=== PATIENT | female | born 1935 | race American Indian/Alaskan Native ===

== ENCOUNTER 2017-06-15 21:46 | Emergency (ER) | payer MEDICARE ==
[2017-06-15 22:58] VITALS: BP 133/68
== END 2017-06-15 23:55 | disposition left against medical advice (07) ==
LOC: ED 21:46
DX: M25.562 Pain in left knee (principal); Z53.21 Procedure and treatment not carried out due to patient leaving prior to being seen by health care provider

== ENCOUNTER 2017-06-24 10:56 | Outpatient (CLI) | payer MEDICARE ==
--- NOTE | 2017-06-24 13:05 | XRay Report ---
BILATERAL KNEE RADIOGRAPHS INDICATION: Right knee pain. COMPARISON: None similar. FINDINGS: Standing AP and lateral views of both knees demonstrate multiple round, aggregated ossific densities behind the right knee, individually measuring approximately 2 cm with similar, less pronounced findings on the left. Osteopenia/osteoporosis. Tricompartmental osteoarthrosis noted bilaterally, in the order of severity involving the medial, patellofemoral and lateral compartments. No significant right suprapatellar effusion. Left suprapatellar soft tissue swelling/effusion though suspected as also possible soft tissue air. CONCLUSION: 1. Synovial osteochondromatosis, right greater than left, as described. 2. Advanced bilateral knee tricompartmental osteoarthrosis also noted. Thank you for the opportunity to participate in this patient's care.
== END 2017-06-24 10:57 | disposition home or self-care (01) ==
LOC: XRAY 10:56
PROVIDERS: ATTEND Orthopaedic Surgery
DX: D48.0 Neoplasm of uncertain behavior of bone and articular cartilage (principal); M17.0 Bilateral primary osteoarthritis of knee; M81.0 Age-related osteoporosis without current pathological fracture

== ENCOUNTER 2017-07-21 11:51 | Outpatient (CLI) | payer MEDICARE ==
--- NOTE | 2017-07-21 14:12 | XRay Report ---
ROUTINE CHEST, TWO VIEWS: HISTORY: Heart failure. The trachea, heart, mediastinal contour, lung perez and bony thorax are unremarkable. Chronic bilateral rotator cuff tears are suspected with advanced degenerative changes of both shoulders. IMPRESSION: No acute cardiopulmonary process.
== END 2017-07-21 11:52 | disposition home or self-care (01) ==
LOC: XRAY 11:51
PROVIDERS: ATTEND Nurse Practitioner
DX: Z01.810 Encounter for preprocedural cardiovascular examination (principal); I50.9 Heart failure, unspecified; M19.011 Primary osteoarthritis, right shoulder; M19.012 Primary osteoarthritis, left shoulder
CPT/HCPCS: 71020

== ENCOUNTER 2017-09-04 06:15 | Inpatient (IN) | payer MEDICARE ==
[2017-09-03 14:49] LABS: Alanine Aminotransferase 22 units/L (7-56); Albumin 3.3 g/dL (3.9-5); BUN/Creatinine Ratio 24; Blood Urea Nitrogen 12 mg/dL (7-17); Calcium 11.4 mg/dL (8.4-10.2); Hemolysis Index 19
[2017-09-03 14:50] LABS: Hematocrit 30.4 % (30.3-42.9)
[2017-09-03 14:51] LABS: Basophils % (Auto) 0.5 % (0.0-1.8); Eosinophils # (Auto) 0.1 K/mm3 (0.0-0.4); Eosinophils % (Auto) 2.7 % (0.0-4.3); Lymphocytes # (Auto) 2.4 K/mm3 (1.2-5.4); Lymphocytes % (Auto) 45.3 % (13.4-35.0); Mean Corpuscular HGB Conc 33 % (30-34); Mean Corpuscular Hemoglobin 28 pg (28-32); Mean Corpuscular Volume 84 fl (79-97); Monocytes # (Auto) 0.7 K/mm3 (0.0-0.8); Monocytes % (Auto) 13.8 % (0.0-7.3); Platelet Count 174 K/mm3 (140-440); Red Cell Distribution Width 16.4 % (13.2-15.2)
[2017-09-03 14:54] LABS: INR 1.11 (0.87-1.13)
[2017-09-03 14:55] LABS: Partial Thromboplastin Time 31.9 Sec. (24.2-36.6)
[~2017-09-04 06:15] MED LIST: TRANEXAMIC ACID IV ONE
[2017-09-04] MEDS ORDERED: PEPCID PO NR (07:00)
[2017-09-04] MEDS ORDERED: ANCEF/STERILE WATER 2 GM/20 ML IV NR (07:00)
[2017-09-04] MEDS ORDERED: VERSED IV NR (07:00)
[2017-09-04] MEDS ORDERED: MORPHINE IV PRN (07:32)
[2017-09-04] MEDS ORDERED: ZOFRAN IV PRN (07:32)
--- NOTE | 2017-09-04 07:32 | Anesthesia Day of Surgery ---
Anesthesia Day of Surgery - Day of Surgery Patient Examined: Yes Patient H&P Reviewed: Yes Patient is NPO: Yes Beta Blockers: Yes Cardiac Clearance: Yes
--- NOTE | 2017-09-04 07:32 | Anesthesia Consultation ---
Anesthesia Consult and Med Hx Date of service: 09/04/17 - Airway Anesthetic Teeth Evaluation: Dentures, Edentulous ROM Head & Neck: Adequate Mental/Hyoid Distance: Adequate Mallampati Class: Class II Intubation Access Assessment: Probably Good - Pulmonary Exam CTA: Yes - Cardiac Exam Cardiac Exam: RRR - Pre-Operative Health Status ASA Pre-Surgery Classification: ASA3 Proposed Anesthetic Plan: Epidural, Spinal Nerve Block: adductor canal - Pulmonary Hx Smoking: No SOB: Yes Hx Sleep Apnea: (ALVAREZ PRE SCREEN HIGH RISK.) - Cardiovascular System Hx Hypertension: Yes (X 10 YRS, EF 60%) Hx Heart Attack/AMI: No Hx Percutaneous Transluminal Coronary Angioplasty (PTCA): Yes (stent x 1?) Hx Cardia Arrhythmia: Yes (afib, off coumadin x 7 days) - Central Nervous System Hx Seizures: No CVA: No Hx Psychiatric Problems: Yes (anxiety) - Gastrointestinal Hx Gastroesophageal Reflux Disease: Yes - Endocrine Hx Renal Disease: No (h/o stones) Hx Insulin Dependent Diabetes: Yes Hx Hypothyroidism: No - Other Systems Hx Cancer: No Hx Obesity: Yes - Additional Comments Anesthesia Medical History Comments: cardiac clearance on chart
[2017-09-04] MEDS ORDERED: SUBLIMAZE ONE (07:33)
[2017-09-04] MEDS ORDERED: DIPRIVAN 10 MG/ML IV ONE ×4 (07:33→11:23)
[2017-09-04] MEDS ORDERED: XYLOCAINE MPF 2% ONE (07:33)
[2017-09-04] MEDS ORDERED: NACL BACTERIOSTATIC INFILTRATI ONE (07:48)
[2017-09-04] MEDS: NACL 0.9% 1000 ML 1,000 ML IV SCH (07:50)
[2017-09-04] MEDS ORDERED: XYLOCAINE 1% 20 mL ONE (07:54)
[2017-09-04] MEDS ORDERED: DECADRON ONE (07:54)
[2017-09-04] MEDS ORDERED: MARCAINE 0.5% 0 ML INFILTRATI ONE (07:54)
[2017-09-04] MEDS ORDERED: CLONIDINE 1,000 MCG/10 ML VIAL EP ONE (07:55)
[2017-09-04] MEDS ORDERED: ePHEDrine SULFATE ONE ×2 (08:41→09:49)
[2017-09-04] MEDS ORDERED: MARCAINE 0.5% 60 ML INFILTRATI ONE (10:57)
[2017-09-04] MEDS ORDERED: DEPO-MEDROL ONE (10:57)
[2017-09-04] MEDS ORDERED: NACL ONE (10:57)
[2017-09-04] MEDS ORDERED: MORPHINE ONE (10:58)
[2017-09-04] MEDS ORDERED: TORADOL ONE (10:58)
[2017-09-04] MEDS ORDERED: NACL 0.9% 100 ML ONE (11:07)
[2017-09-04] MEDS ORDERED: MORPHINE IM ONE (11:07)
[2017-09-04] MEDS ORDERED: MARCAINE 0.5% INFILTRATI ONE ×2 (11:07→11:15)
[2017-09-04] MEDS ORDERED: TRANEXAMIC ACID ONE (11:07)
[2017-09-04] MEDS ORDERED: DEPO-MEDROL INTRA-ARTI ONE ×2 (11:07→11:15)
[2017-09-04] MEDS ORDERED: TORADOL IV ONE (11:07)
[2017-09-04] MEDS ORDERED: NACL 0.9% IV ONE ×2 (11:07→11:34)
[2017-09-04] MEDS ORDERED: DILAUDID ONE (11:32)
[2017-09-04] MEDS ORDERED: TRANEXAMIC ACID IV ONE (11:43)
[2017-09-04] MEDS ORDERED: SODIUM CHLORIDE FLUSH SYRINGE 10 ML IV PRN (14:26)
--- NOTE | 2017-09-04 14:40 | Procedure Note ---
Date of procedure: 09/04/17 Pre-op diagnosis: severe arthritis left knee Post-op diagnosis: same Procedure: Left total knee replacement Procedure The patient was brought to the OR placed in the OR table in supine position. She was given a spinal anesthesia in the left lower extremity was prepped and draped in the usual sterile manner. A timeout procedure was done to identify the patient and the correct operative site. The leg was exsanguinated followed by insufflation of the pneumatic tourniquet to 300 mmHg. A midline incision was made centered over the patella was taken down distally towards the tibial tubercle, incision was taken down deep to the patellar tendon exposing the extensor muscles and tendon. Using the subvastus approach the knee joint was exposed revealing severe osteoarthritic changes to both distal femur and proximal tibia as well as some marginal osteophytes at the patella with the knee in full flexion the distal canal was entered using a large drill bit followed by placement over guide aidan into the distal femur next a distal femoral cutting G was applied and approximately 9 mm of distal femur was removed. Taken to protect the collateral ligaments The sizing was done for the femoral component and #5 component was selected this was followed by removal of the anterior posterior chamfer cuts next C-arm control component was inserted and was found to be a good fit. Following removal of the trial femoral component ATTENTION was turned to the proximal tibia using the external alignment guide approximately 8-10 mm of proximal tibia was removed again care was taken to protect the posterior cruciate ligament as well as the collaterals also the medial and lateral menisci were removed as well as impinging osteophytes next the wound was copiously irrigated with pulse lavage this was followed by placement of our trial components bed being a #5 femoral component a 9 mm polyethylene insert and a normal size tibial baseplate knee was reduced and taken through a range of motion and was found to be stable again the trial components were removed the knee was again irrigated with pulse lavage The bone cement was mixed followed by placement over all final components bed being again a #5 femoral component and #5 tibial base plate and a 9 mm polyethylene insert. Again the knee was taken to range of motion and was found to be stable. Next the quadriceps and patellar tendon were repaired using #1 Vicryl followed by closure of the subcutaneous with 2-0 Vicryl and finally metallic dominick were used to suture the skin edges. A mixture of morphine Toradol Marcaine is saline were injected into the surrounding soft tissue for postop pain management. Routine postop process were applied the patient tolerated the procedure there were no complications she was sent to postanesthesia recovery in a stable condition Anesthesia: spinal Surgeon: TUCKER FLEMING (mariama peña 1st geriatric assistant) Estimated blood loss: 50-100ml Pathology: none Condition: stable Disposition: PACU
[2017-09-04] MEDS ORDERED: ANCEF/NS 1 GM/50 ML 1 GM/50 ML BAG IV SCH (15:00)
--- NOTE | 2017-09-04 15:22 | Post Anesthesia Evaluation ---
- Post Anesthesia Evaluation Patient Participated: Yes Airway Patent: Yes Stable Respiratory Function: Yes Nausea/Vomiting: No Temp > 96.8F: Yes Pain Manageable: Yes Adequeate Hydration: Yes Anesthesia Complications: No Block Receding Appropriately: Not Applicable Patient on Ventilator: No
--- NOTE | 2017-09-04 15:35 | History and Physical Report ---
History of Present Illness Date of admission: 09/04/17 06:30 Chief complaint: I have high blood pressure History of present illness: 81 YO Female with HTN, [place], CAD S/P Stent placement, Atrial Fib, ALVAREZ, Obesity, GERD, Diabetes, Anxiety admitted to [facility] for elective Left TKR. Consult placed by Dr. Gudino for medical management. Pt seen and evaluated. Pt resting comfortably. No reports of fever, chills, CP, Palpitations, Shortness of breath , NVD, syncope, productive cough, leg swelling, calf pain, hemoptysis, BRBPR. No reported nursing events. Past History Past Medical History: atrial fib, CAD, diabetes, GERD, hypertension Past Surgical History: total knee replacement Social history: Family history: diabetes, hypertension Medications and Allergies Allergies Allergy/AdvReac Type Severity Reaction Status Date / Time No Known Allergies Allergy Verified 09/02/17 14:41 Home Medications Medication Instructions Recorded Confirmed Last Taken Type Atorvastatin [Lipitor Tab] 10 mg PO QHS 01/08/15 09/02/17 09/03/17 History Citalopram [celeXA] 10 mg PO QDAY 01/08/15 09/02/17 09/03/17 History Famotidine [Pepcid] 40 mg PO BID 01/08/15 09/02/17 09/03/17 History Furosemide [Lasix] 40 mg PO DAILY #30 tablet 01/08/15 09/02/17 09/03/17 Rx Meclizine HCl [Antivert] 12.5 mg PO DAILY PRN 01/08/15 09/02/17 09/03/17 History Metoprolol [Lopressor TAB] 50 mg PO BID 01/08/15 09/02/17 09/04/17 05:00 History Minoxidil [Loniten] 10 mg PO BID 01/08/15 09/02/17 01/08/15 History Warfarin Sodium [Coumadin] 7.5 mg PO 4XW 01/08/15 09/04/17 7 Days Ago History ~08/28/17 Warfarin [Coumadin] 5 mg PO 3XW 01/08/15 09/03/17 01/07/15 History Diltiazem HCl [Diltiazem ER] 180 mg PO BID 09/02/17 09/03/17 09/04/17 05:00 History Omeprazole 20 mg PO DAILY 09/02/17 09/03/17 09/03/17 History Potassium Chloride [Klor-Con] 20 meq PO DAILY 09/02/17 09/02/17 09/03/17 History Torsemide [Demadex] 20 mg PO DAILY 09/02/17 09/02/17 09/03/17 History metFORMIN [Glucophage] 500 mg PO BID 09/02/17 09/03/17 09/03/17 History Cholecalciferol (Vitamin D3) 2,000 unit PO DAILY 09/03/17 09/03/17 09/03/17 History [Vitamin D3] Gabapentin [Neurontin] 100 mg PO DAILY 09/03/17 09/03/17 09/03/17 History Insulin Glargine,Hum.rec.anlog 16 units SQ DAILY 09/03/17 09/03/17 Unknown History [Camila Ledesma] Tylenol /Codeine # 3 tab 1 tab PO PRN PRN 09/03/17 09/03/17 09/03/17 History Active Meds: Active Medications Cefazolin Sodium (Ancef/Sterile Water 2 Gm/20 Ml) 2 gm IV PREOP NR Stop: 09/04/17 23:59 Celecoxib (Celebrex) 200 mg PO BID DEANN Enoxaparin Sodium (Lovenox) 40 mg SUB-Q QDAY DEANN Famotidine (Pepcid) 20 mg PO PREOP NR Stop: 09/04/17 23:45 Last Admin: 09/04/17 07:20 Dose: 20 mg Sodium Chloride (Nacl 0.9% 1000 Ml) 1,000 mls @ 100 mls/hr IV DIRECT [facility] Last Admin: 09/04/17 07:50 Dose: 100 mls/hr Cefazolin Sodium 1 gm/ Sodium (Chloride) 20 mls @ 20 mls/10 min IV Q8H [facility] Stop: 09/05/17 00:09 Midazolam HCl (Versed) 2 mg IV PREOP NR Stop: 09/04/17 23:59 Last Admin: 09/04/17 08:20 Dose: 1 mg Morphine Sulfate (Morphine) 2 mg IV Q10MIN PRN PRN Reason: Pain, Moderate (4-6) Sodium Chloride (Sodium Chloride Flush Syringe 10 Ml) 10 ml IV PRN PRN PRN Reason: LINE FLUSH Review of Systems Constitutional: no weight loss, no weight gain, no fever, no chills Ears, nose, mouth and throat: no ear pain, no ear discharge, no tinnitis, no decreased hearing, no nose pain Breasts: no change in shape, no swelling, no mass Cardiovascular: no chest pain, no orthopnea, no palpitations, no lightheadedness Respiratory: no cough, no cough with sputum, no excessive sputum, no hemoptysis , no shortness of breath Gastrointestinal: no nausea, no vomiting, no diarrhea, no constipation Genitourinary Female: no pelvic pain, no flank pain, no menorrhagia, no dysuria , no urinary frequency Rectal: no pain, no incontinence, no bleeding, no itching Musculoskeletal: no neck stiffness, no neck pain, no shooting arm pain, no arm numbness/tingling, no low back pain Integumentary: no rash, no pruritis, no redness, no sores, no wounds Neurological: no paralysis, no weakness, no parathesias, no numbness Psychiatric: no anxiety, no memory loss, no change in sleep habits, no sleep disturbances, no insomnia Endocrine: no cold intolerance, no heat intolerance, no polyphagia, no excessive thirst, no polydipsia, no polyuria Hematologic/Lymphatic: no easy bruising, no easy bleeding Allergic/Immunologic: no urticaria, no allergic rhinitis, no wheezing Exam - Constitutional Vitals: Temp Pulse Resp BP Pulse Ox 97.6 F 69 14 104/50 100 09/04/17 13:55 09/04/17 14:10 09/04/17 14:10 09/04/17 14:10 09/04/17 14:10 General appearance: Present: mild distress, obese - EENT Eyes: Present: PERRL ENT: hearing intact, clear oral mucosa - Neck Neck: Present: supple, normal ROM - Respiratory Respiratory effort: normal Respiratory: bilateral: CTA - Cardiovascular Heart Sounds: Present: S1 & S2. Absent: rub, click - Extremities Extremities: pulses symmetrical, No edema Peripheral Pulses: within normal limits - Abdominal General gastrointestinal: Present: soft, non-tender, non-distended, normal bowel sounds Female genitourinary: Present: normal - Integumentary Integumentary: Present: clear, warm, dry - Musculoskeletal Musculoskeletal: gait normal, strength equal bilaterally - Psychiatric Psychiatric: appropriate mood/affect, intact judgment & insight - Neurologic Neurologic: CNII-XII intact, moves all extremities Results - Labs CBC & Chem 7: 09/04/17 16:11 09/04/17 16:11 Labs: Abnormal lab results 09/04/17 Range/Units 12:15 POC Glucose 149 H (70-105) Assessment and Plan - Patient Problems (1) HTN (hypertension) Current Visit: Yes Status: Acute Qualifiers: Hypertension type: essential hypertension Qualified Code(s): I10 - Essential (primary) hypertension Plan to address problem: Monitor bp q shift, IV hydralazine prn (2) Diabetes Current Visit: Yes Status: Acute Plan to address problem: ADA diet, insulin, accu check (3) CAD (coronary artery disease) Current Visit: Yes Status: Acute Qualifiers: Coronary Disease-Associated Artery/Lesion type: [place] artery [place] vs. transplanted heart: [place] heart Associated angina: without angina Qualified Code(s): I25.10 - Atherosclerotic heart disease of [place] coronary artery without angina pectoris Plan to address problem: Stable, No angina at this time. Resume anticoagulation, and anti platelet therapy as soon as possible.
[2017-09-04] MEDS ORDERED: D50W (25GM) Syringe IV PRN (16:21)
[2017-09-04 16:52] LABS: Hematocrit 28.4 % (30.3-42.9); Hemoglobin 9.1 gm/dl (10.1-14.3)
[2017-09-04 16:59] LABS: BUN/Creatinine Ratio 26; Blood Urea Nitrogen 13 mg/dL (7-17); Calcium 10.1 mg/dL (8.4-10.2); Hemolysis Index 4
[2017-09-05] MEDS: ceFAZolin 1 GM in NACL 0.9% 20 ML IV SCH ×2 (00:36→06:47)
[2017-09-05] MEDS: NOVOLOG SUB-Q SCH ×5 (00:36→18:36)
[2017-09-05] MEDS: MORPHINE IV PRN ×3 (02:14→22:17)
[2017-09-05] MEDS: NACL 0.9% 1000 ML 1,000 ML IV SCH (02:16)
[2017-09-05] MEDS: LOVENOX SUB-Q SCH (11:27)
[2017-09-05] MEDS ORDERED: APRESOLINE IV PRN (13:43)
[2017-09-05] MEDS ORDERED: ANTIVERT PO PRN (14:49)
--- NOTE | 2017-09-05 14:49 | Progress Note ---
<YVROSE NINA - Last Filed: 09/05/17 15:14> Assessment and Plan Assessment and plan: Patient is a 81 years old female with HTN, [place], CAD S/P Stent placement, Atrial Fib, ALVAREZ, Obesity, GERD, Diabetes, Anxiety admitted to [facility] for elective Left TKR. Consult placed by Dr. Gudino for medical management. Hypertensive urgency Continue home antihypertensive medications Closely monitor blood pressure Coronary artery disease Continue statins Diabetes mellitus Resume metformin and long acting at HS Accu-Chek before meals and at bedtime Sliding scale insulin/NovoLog ADA carbohydrate consistent diet Chronic anemia H&H stable for patient at this point; no blood transfusions needed Closely monitor H&H Hypenatrmia mild Most likely due to poor oral intake Closely monitor electrolytes Hx Atrial fibrillation Resume Coumadin Closely monitor INR DVT prophylaxis Heparin History Interval history: Patient denies chest pain, shortness of breath. Labs and nursing notes reviewed. Hospitalist Physical - Physical exam Narrative exam: Patient alert oriented to person and place, disoriented to time and situation. - Constitutional Vitals: Temp Pulse Resp BP Pulse Ox 98.4 F 81 20 140/80 97 09/05/17 12:00 09/05/17 12:00 09/05/17 12:00 09/05/17 12:00 09/05/17 12:00 General appearance: Present: mild distress, obese, other - EENT Eyes: Present: PERRL ENT: hearing intact - Neck Neck: Present: supple - Respiratory Respiratory effort: normal Respiratory: bilateral: CTA - Cardiovascular Rhythm: regular Heart Sounds: Present: S1 & S2 - Extremities Extremity abnormal: edema (bilateral lower extremity) - Abdominal General gastrointestinal: soft, non-tender - Integumentary Integumentary: Present: clear, warm, dry - Psychiatric Psychiatric: other (impaired judgment) - Neurologic Neurologic: moves all extremities - Allied Health Allied health notes reviewed: nursing Results - Labs CBC & Chem 7: 09/04/17 16:11 09/04/17 16:11 Labs: Laboratory Last Values WBC 5.3 K/mm3 (4.5-11.0) 09/03/17 14:20 RBC 3.60 M/mm3 (3.65-5.03) L 09/03/17 14:20 Hgb 9.1 gm/dl (10.1-14.3) L 09/04/17 16:11 Hct 28.4 % (30.3-42.9) L 09/04/17 16:11 MCV 84 fl (79-97) 09/03/17 14:20 MCH 28 pg (28-32) 09/03/17 14:20 MCHC 33 % (30-34) 09/03/17 14:20 RDW 16.4 % (13.2-15.2) H 09/03/17 14:20 Plt Count 174 K/mm3 (140-440) 09/03/17 14:20 Lymph % (Auto) 45.3 % (13.4-35.0) H 09/03/17 14:20 [place] % (Auto) 13.8 % (0.0-7.3) H 09/03/17 14:20 Eos % (Auto) 2.7 % (0.0-4.3) 09/03/17 14:20 Baso % (Auto) 0.5 % (0.0-1.8) 09/03/17 14:20 Lymph # 2.4 K/mm3 (1.2-5.4) 09/03/17 14:20 [place] # 0.7 K/mm3 (0.0-0.8) 09/03/17 14:20 Eos # 0.1 K/mm3 (0.0-0.4) 09/03/17 14:20 Baso # 0.0 K/mm3 (0.0-0.1) 09/03/17 14:20 Seg Neutrophils % 37.7 % (40.0-70.0) L 09/03/17 14:20 Seg Neutrophils # 2.0 K/mm3 (1.8-7.7) 09/03/17 14:20 PT 14.9 Sec. (12.2-14.9) 09/03/17 14:20 INR 1.11 (0.87-1.13) 09/03/17 14:20 APTT 31.9 Sec. (24.2-36.6) 09/03/17 14:20 Sodium 146 mmol/L (137-145) H 09/04/17 16:11 Potassium 4.0 mmol/L (3.6-5.0) 09/04/17 16:11 Chloride 112.5 mmol/L (98-107) H 09/04/17 16:11 Carbon Dioxide 21 mmol/L (22-30) L 09/04/17 16:11 Anion Gap 17 mmol/L 09/04/17 16:11 BUN 13 mg/dL (7-17) 09/04/17 16:11 Creatinine 0.5 mg/dL (0.7-1.2) L 09/04/17 16:11 Estimated GFR > 60 ml/min 09/04/17 16:11 BUN/Creatinine Ratio 26 % 09/04/17 16:11 Glucose 158 mg/dL (65-100) H 09/04/17 16:11 POC Glucose 206 (70-105) H 09/05/17 12:11 Calcium 10.1 mg/dL (8.4-10.2) 09/04/17 16:11 Total Bilirubin 0.40 mg/dL (0.1-1.2) 09/03/17 14:20 AST 43 units/L (5-40) H 09/03/17 14:20 ALT 22 units/L (7-56) 09/03/17 14:20 Alkaline Phosphatase 122 units/L (35-129) 09/03/17 14:20 Total Protein 7.3 g/dL (6.3-8.2) 09/03/17 14:20 Albumin 3.3 g/dL (3.9-5) L 09/03/17 14:20 Albumin/Globulin Ratio 0.8 % 09/03/17 14:20 <BRIANA GRIGGS R - Last Filed: 09/05/17 16:22> Assessment and Plan Assessment and plan: I saw and evaluated the patient. I agree with the findings and the plan of care as documented in the Nurse Practitioner's~note, with the following corrections and additions. Hospitalist Physical - Constitutional Vitals: Temp Pulse Resp BP Pulse Ox 98.4 F 81 20 140/80 97 09/05/17 12:00 09/05/17 12:00 09/05/17 12:00 09/05/17 12:00 09/05/17 12:00 Results - Labs CBC & Chem 7: 09/04/17 16:11 09/04/17 16:11 Labs: Laboratory Last Values WBC 5.3 K/mm3 (4.5-11.0) 09/03/17 14:20 RBC 3.60 M/mm3 (3.65-5.03) L 09/03/17 14:20 Hgb 9.1 gm/dl (10.1-14.3) L 09/04/17 16:11 Hct 28.4 % (30.3-42.9) L 09/04/17 16:11 MCV 84 fl (79-97) 09/03/17 14:20 MCH 28 pg (28-32) 09/03/17 14:20 MCHC 33 % (30-34) 09/03/17 14:20 RDW 16.4 % (13.2-15.2) H 09/03/17 14:20 Plt Count 174 K/mm3 (140-440) 09/03/17 14:20 Lymph % (Auto) 45.3 % (13.4-35.0) H 09/03/17 14:20 [place] % (Auto) 13.8 % (0.0-7.3) H 09/03/17 14:20 Eos % (Auto) 2.7 % (0.0-4.3) 09/03/17 14:20 Baso % (Auto) 0.5 % (0.0-1.8) 09/03/17 14:20 Lymph # 2.4 K/mm3 (1.2-5.4) 09/03/17 14:20 [place] # 0.7 K/mm3 (0.0-0.8) 09/03/17 14:20 Eos # 0.1 K/mm3 (0.0-0.4) 09/03/17 14:20 Baso # 0.0 K/mm3 (0.0-0.1) 09/03/17 14:20 Seg Neutrophils % 37.7 % (40.0-70.0) L 09/03/17 14:20 Seg Neutrophils # 2.0 K/mm3 (1.8-7.7) 09/03/17 14:20 PT 14.9 Sec. (12.2-14.9) 09/03/17 14:20 INR 1.11 (0.87-1.13) 09/03/17 14:20 APTT 31.9 Sec. (24.2-36.6) 09/03/17 14:20 Sodium 146 mmol/L (137-145) H 09/04/17 16:11 Potassium 4.0 mmol/L (3.6-5.0) 09/04/17 16:11 Chloride 112.5 mmol/L (98-107) H 09/04/17 16:11 Carbon Dioxide 21 mmol/L (22-30) L 09/04/17 16:11 Anion Gap 17 mmol/L 09/04/17 16:11 BUN 13 mg/dL (7-17) 09/04/17 16:11 Creatinine 0.5 mg/dL (0.7-1.2) L 09/04/17 16:11 Estimated GFR > 60 ml/min 09/04/17 16:11 BUN/Creatinine Ratio 26 % 09/04/17 16:11 Glucose 158 mg/dL (65-100) H 09/04/17 16:11 POC Glucose 206 (70-105) H 09/05/17 12:11 Calcium 10.1 mg/dL (8.4-10.2) 09/04/17 16:11 Total Bilirubin 0.40 mg/dL (0.1-1.2) 09/03/17 14:20 AST 43 units/L (5-40) H 09/03/17 14:20 ALT 22 units/L (7-56) 09/03/17 14:20 Alkaline Phosphatase 122 units/L (35-129) 09/03/17 14:20 Total Protein 7.3 g/dL (6.3-8.2) 09/03/17 14:20 Albumin 3.3 g/dL (3.9-5) L 09/03/17 14:20 Albumin/Globulin Ratio 0.8 % 09/03/17 14:20
--- NOTE | 2017-09-05 16:44 | Progress Note ---
Assessment and Plan s/p left total knee replacement, doing well continue Pt and observation, rehab placement on friday Subjective Date of service: 09/05/17 Interval history: no c/o's noted, got up today with PT and walked w/n room...daughter present in room.... Objective Vital signs: Vital Signs - 12hr 09/05/17 09/05/17 09/05/17 05:02 08:00 08:06 Temperature 98.3 F 98.3 F Pulse Rate 79 82 Respiratory 20 20 Rate Blood Pressure 143/86 Blood Pressure 154/79 [Left] O2 Sat by Pulse 96 98 100 Oximetry 09/05/17 09/05/17 12:00 16:00 Temperature 98.4 F 97.6 F Pulse Rate 81 88 Respiratory 20 20 Rate Blood Pressure Blood Pressure 140/80 110/70 [Left] O2 Sat by Pulse 97 98 Oximetry Narrative Exam: left knee - post op dressing intact, negative Hasmukh's sign, moderate swelling, good capillary refill... - Labs CBC & BMP: 09/04/17 16:11 09/04/17 16:11 Labs: Abnormal lab results 09/04/17 09/04/17 09/04/17 Range/Units 16:11 16:11 17:38 Hgb 9.1 L (10.1-14.3) gm/dl Hct 28.4 L (30.3-42.9) % Sodium 146 H (137-145) mmol/L Chloride 112.5 H (98-107) mmol/L Carbon Dioxide 21 L (22-30) mmol/L Creatinine 0.5 L (0.7-1.2) mg/dL Glucose 158 H (65-100) mg/dL POC Glucose 164 H (70-105) 09/04/17 09/05/17 09/05/17 Range/Units 22:16 07:53 12:11 Hgb (10.1-14.3) gm/dl Hct (30.3-42.9) % Sodium (137-145) mmol/L Chloride (98-107) mmol/L Carbon Dioxide (22-30) mmol/L Creatinine (0.7-1.2) mg/dL Glucose (65-100) mg/dL POC Glucose 271 H 182 H 206 H (70-105)
[2017-09-05] MEDS ORDERED: COUMADIN PO SCH (17:00)
[2017-09-05 17:18] LABS: INR 1.18 (0.87-1.13)
[2017-09-05] MEDS: GLUCOPHAGE PO SCH (21:55)
[2017-09-05] MEDS: PEPCID PO SCH (21:55)
[2017-09-05] MEDS: CARDIZEM PO SCH (21:56)
[2017-09-05] MEDS: LOPRESSOR PO SCH (21:57)
[2017-09-05] MEDS: LEVEMIR SUB-Q SCH (22:00)
[2017-09-05] MEDS ORDERED: NON-FORMULARY (Famotidine [Pepcid] 40 MG) PO SCH (22:00)
[2017-09-05] MEDS ORDERED: LONITEN PO SCH (22:00)
[2017-09-05] MEDS ORDERED: DILTIAZEM HCL 180 MG PO SCH (22:00)
[2017-09-06 03:48] LABS: Hematocrit 25.1 % (30.3-42.9); Hemoglobin 8.2 gm/dl (10.1-14.3); Mean Corpuscular HGB Conc 33 % (30-34); Mean Corpuscular Hemoglobin 28 pg (28-32); Mean Corpuscular Volume 86 fl (79-97); Platelet Count 140 K/mm3 (140-440); Red Blood Count 2.91 M/mm3 (3.65-5.03); Red Cell Distribution Width 16.8 % (13.2-15.2)
[2017-09-06 04:04] LABS: BUN/Creatinine Ratio 30; Blood Urea Nitrogen 15 mg/dL (7-17); Hemolysis Index 2
[2017-09-06] MEDS: NOVOLOG SUB-Q SCH ×5 (05:06→22:00)
[2017-09-06] MEDS: DEMADEX PO SCH (05:11)
[2017-09-06 06:59] LABS: Band Neutrophils # (Manual) 0.9 K/mm3; Basophils % (Manual) 0 % (0.0-1.8); Eosinophils % (Manual) 0 % (0.0-4.3); Total Cells Counted 100
[2017-09-06 07:00] LABS: Anisocytosis 1+; Hypochromasia 1+
[2017-09-06] MEDS ORDERED: NON-FORMULARY (Omeprazole [Omeprazole] 20 MG) PO SCH (10:00)
[2017-09-06] MEDS ORDERED: INSULIN GLARGINE HUM REC ANLOG 16 UNIT SQ SCH (10:00)
[2017-09-06] MEDS ORDERED: NON-FORMULARY (Torsemide [Demadex] 20 MG) PO SCH (10:00)
[2017-09-06] MEDS ORDERED: NON-FORMULARY (Cholecalciferol (Vitamin D3) [Vitamin D3] 2,000 UNIT) PO SCH (10:00)
[2017-09-06] MEDS: MORPHINE IV PRN ×4 (10:23→22:42)
[2017-09-06 10:27] LABS: INR 1.18 (0.87-1.13)
[2017-09-06] MEDS: VITAMIN D3 PO SCH (12:12)
[2017-09-06] MEDS: GLUCOPHAGE PO SCH ×2 (12:13→22:41)
[2017-09-06] MEDS: NEURONTIN PO SCH (12:14)
[2017-09-06] MEDS: PEPCID PO SCH ×2 (12:17→22:42)
[2017-09-06] MEDS: celeXA PO SCH (12:17)
[2017-09-06] MEDS: LASIX PO SCH (12:17)
[2017-09-06] MEDS: LOVENOX SUB-Q SCH (12:18)
[2017-09-06] MEDS: CARDIZEM PO SCH ×2 (12:19→22:40)
[2017-09-06] MEDS: POTASSIUM CHLORIDE PO SCH (12:20)
[2017-09-06] MEDS: LOPRESSOR PO SCH ×2 (12:23→22:00)
--- NOTE | 2017-09-06 13:18 | Progress Note ---
Assessment and Plan Assessment and plan: Patient is a 81 years old female with HTN, [place], CAD S/P Stent placement, Atrial Fib, ALVAREZ, Obesity, GERD, Diabetes, Anxiety admitted to [facility] for elective Left TKR. Consult placed by Dr. Gudino for medical management. Hypertensive urgency Continue home antihypertensive medications Closely monitor blood pressure Coronary artery disease Continue statins Diabetes mellitus Resume metformin and long acting at HS Accu-Chek before meals and at bedtime Sliding scale insulin/NovoLog ADA carbohydrate consistent diet Chronic anemia H&H stable for patient at this point; no blood transfusions needed Closely monitor H&H Hypenatrmia mild Most likely due to poor oral intake Closely monitor electrolytes Hx Atrial fibrillation Resume Coumadin Closely monitor INR DVT prophylaxis Heparin History Interval history: Patient was seen and examined. Follow-up on current diagnosis. Overnight uneventful. Patient denies any chest pain, shortness breath, nausea/vomiting or severe headaches. Imaging, nursing note, chart, labs and old chart reviewed. Discussed with patient. Hospitalist Physical - Physical exam Narrative exam: GEN: WDWN, NAD, AWAKE, ALERT, ORIENTATED x2 HEENT: NCAT, EOMI, PERRL, OP Clear NECK: supple, no adenopathy, no thyromegaly, no JVD CVS/HEART: RRR, NORMAL S1S2, NO JVD, pulses present bilaterally CHEST/LUNGS: CTA B, Symmetrical chest expansion, good air entry bilaterally GI/Abdomen: soft, NTND, good bowel sounds, no guarding or rebound /Bladder: no suprapubic tenderness, no CVA or paraspinal tenderness EXT/Skin: no c/c/e, no obvious rash MSK: LROM left knee Neuro: CN 2-12 grossly intact, no new focal deficits Psych: calm her nerves - Constitutional Vitals: Temp Pulse Resp BP Pulse Ox 97.5 F L 88 20 139/75 100 09/06/17 12:16 09/06/17 12:23 09/06/17 12:16 09/06/17 12:23 09/06/17 12:16 General appearance: Present: obese Results - Labs CBC & Chem 7: 09/06/17 03:11 09/06/17 03:11 Labs: Laboratory Last Values WBC 10.0 K/mm3 (4.5-11.0) 09/06/17 03:11 RBC 2.91 M/mm3 (3.65-5.03) L 09/06/17 03:11 Hgb 8.2 gm/dl (10.1-14.3) L 09/06/17 03:11 Hct 25.1 % (30.3-42.9) L 09/06/17 03:11 MCV 86 fl (79-97) 09/06/17 03:11 MCH 28 pg (28-32) 09/06/17 03:11 MCHC 33 % (30-34) 09/06/17 03:11 RDW 16.8 % (13.2-15.2) H 09/06/17 03:11 Plt Count 140 K/mm3 (140-440) 09/06/17 03:11 Lymph % (Auto) 45.3 % (13.4-35.0) H 09/03/17 14:20 [place] % (Auto) Teacher Adult Education 09/06/17 03:11 Eos % (Auto) 2.7 % (0.0-4.3) 09/03/17 14:20 Baso % (Auto) 0.5 % (0.0-1.8) 09/03/17 14:20 Lymph # 2.4 K/mm3 (1.2-5.4) 09/03/17 14:20 [place] # 0.7 K/mm3 (0.0-0.8) 09/03/17 14:20 Eos # 0.1 K/mm3 (0.0-0.4) 09/03/17 14:20 Baso # 0.0 K/mm3 (0.0-0.1) 09/03/17 14:20 Add Manual Diff Complete 09/06/17 03:11 Total Counted 100 09/06/17 03:11 Seg Neutrophils % 37.7 % (40.0-70.0) L 09/03/17 14:20 Seg Neuts % (Manual) 63.0 % (40.0-70.0) 09/06/17 03:11 Band Neutrophils % 9.0 % 09/06/17 03:11 Lymphocytes % (Manual) 14.0 % (13.4-35.0) 09/06/17 03:11 Reactive Lymphs % (Man) 0 % 09/06/17 03:11 Monocytes % (Manual) 14.0 % (0.0-7.3) H 09/06/17 03:11 Eosinophils % (Manual) 0 % (0.0-4.3) 09/06/17 03:11 Basophils % (Manual) 0 % (0.0-1.8) 09/06/17 03:11 Metamyelocytes % 0 % 09/06/17 03:11 Myelocytes % 0 % 09/06/17 03:11 Promyelocytes % 0 % 09/06/17 03:11 Blast Cells % 0 % 09/06/17 03:11 Nucleated RBC % Not Reportable 09/06/17 03:11 Seg Neutrophils # 2.0 K/mm3 (1.8-7.7) 09/03/17 14:20 Seg Neutrophils # Man 6.3 K/mm3 (1.8-7.7) 09/06/17 03:11 Band Neutrophils # 0.9 K/mm3 09/06/17 03:11 Lymphocytes # (Manual) 1.4 K/mm3 (1.2-5.4) 09/06/17 03:11 Abs React Lymphs (Man) 0.0 K/mm3 09/06/17 03:11 Monocytes # (Manual) 1.4 K/mm3 (0.0-0.8) H 09/06/17 03:11 Eosinophils # (Manual) 0.0 K/mm3 (0.0-0.4) 09/06/17 03:11 Basophils # (Manual) 0.0 K/mm3 (0.0-0.1) 09/06/17 03:11 Metamyelocytes # 0.0 K/mm3 09/06/17 03:11 Myelocytes # 0.0 K/mm3 09/06/17 03:11 Promyelocytes # 0.0 K/mm3 09/06/17 03:11 Blast Cells # 0.0 K/mm3 09/06/17 03:11 WBC Morphology Not Reportable 09/06/17 03:11 Hypersegmented Neuts Not Reportable 09/06/17 03:11 Hyposegmented Neuts Not Reportable 09/06/17 03:11 Hypogranular Neuts Not Reportable 09/06/17 03:11 Smudge Cells Not Reportable 09/06/17 03:11 Toxic Granulation Not Reportable 09/06/17 03:11 Toxic Vacuolation Not Reportable 09/06/17 03:11 Dohle Bodies Not Reportable 09/06/17 03:11 Pelger-Huet Anomaly Not Reportable 09/06/17 03:11 Ulisses Rods Not Reportable 09/06/17 03:11 Platelet Estimate Appears normal 09/06/17 03:11 Clumped Platelets Not Reportable 09/06/17 03:11 Plt Clumps, EDTA Not Reportable 09/06/17 03:11 Large Platelets Not Reportable 09/06/17 03:11 Giant Platelets Not Reportable 09/06/17 03:11 Platelet Satelliting Not Reportable 09/06/17 03:11 Plt Morphology Comment Not Reportable 09/06/17 03:11 RBC Morphology Not Reportable 09/06/17 03:11 Dimorphic RBCs Not Reportable 09/06/17 03:11 Polychromasia Not Reportable 09/06/17 03:11 Hypochromasia 1+ 09/06/17 03:11 Poikilocytosis Not Reportable 09/06/17 03:11 Anisocytosis 1+ 09/06/17 03:11 Microcytosis Not Reportable 09/06/17 03:11 Macrocytosis Not Reportable 09/06/17 03:11 Spherocytes Not Reportable 09/06/17 03:11 Pappenheimer Bodies Not Reportable 09/06/17 03:11 Sickle Cells Not Reportable 09/06/17 03:11 Target Cells Not Reportable 09/06/17 03:11 Tear Drop Cells Not Reportable 09/06/17 03:11 Ovalocytes Not Reportable 09/06/17 03:11 Helmet Cells Not Reportable 09/06/17 03:11 Kraft-[place] Bodies Not Reportable 09/06/17 03:11 [place] Rings Not Reportable 09/06/17 03:11 Dia Cells Not Reportable 09/06/17 03:11 Bite Cells Not Reportable 09/06/17 03:11 Crenated Cell Not Reportable 09/06/17 03:11 Elliptocytes Not Reportable 09/06/17 03:11 Acanthocytes (Spur) Not Reportable 09/06/17 03:11 Rouleaux Not Reportable 09/06/17 03:11 Hemoglobin C Crystals Not Reportable 09/06/17 03:11 Schistocytes Not Reportable 09/06/17 03:11 Malaria parasites Not Reportable 09/06/17 03:11 Miki Bodies Not Reportable 09/06/17 03:11 Hem Pathologist Commnt No 09/06/17 03:11 PT 15.6 Sec. (12.2-14.9) H 09/06/17 09:45 INR 1.18 (0.87-1.13) H 09/06/17 09:45 APTT 31.9 Sec. (24.2-36.6) 09/03/17 14:20 Sodium 145 mmol/L (137-145) 09/06/17 03:11 Potassium 4.6 mmol/L (3.6-5.0) 09/06/17 03:11 Chloride 111.4 mmol/L (98-107) H 09/06/17 03:11 Carbon Dioxide 21 mmol/L (22-30) L 09/06/17 03:11 Anion Gap 17 mmol/L 09/06/17 03:11 BUN 15 mg/dL (7-17) 09/06/17 03:11 Creatinine 0.5 mg/dL (0.7-1.2) L 09/06/17 03:11 Estimated GFR > 60 ml/min 09/06/17 03:11 BUN/Creatinine Ratio 30 % 09/06/17 03:11 Glucose 137 mg/dL (65-100) H 09/06/17 03:11 POC Glucose 175 (70-105) H 09/06/17 11:40 Calcium 10.0 mg/dL (8.4-10.2) 09/06/17 03:11 Total Bilirubin 0.40 mg/dL (0.1-1.2) 09/03/17 14:20 AST 43 units/L (5-40) H 09/03/17 14:20 ALT 22 units/L (7-56) 09/03/17 14:20 Alkaline Phosphatase 122 units/L (35-129) 09/03/17 14:20 Total Protein 7.3 g/dL (6.3-8.2) 09/03/17 14:20 Albumin 3.3 g/dL (3.9-5) L 09/03/17 14:20 Albumin/Globulin Ratio 0.8 % 09/03/17 14:20
[2017-09-06] MEDS: LEVEMIR SUB-Q SCH (22:00)
[2017-09-07] MEDS: NACL 0.9% 1000 ML 1,000 ML IV SCH (00:36)
[2017-09-07] MEDS: MORPHINE IV PRN ×3 (03:16→10:47)
[2017-09-07 05:04] LABS: Hematocrit 23.7 % (30.3-42.9); Hemoglobin 7.8 gm/dl (10.1-14.3); Mean Corpuscular HGB Conc 33 % (30-34); Mean Corpuscular Hemoglobin 28 pg (28-32); Mean Corpuscular Volume 85 fl (79-97); Platelet Count 147 K/mm3 (140-440); Red Blood Count 2.78 M/mm3 (3.65-5.03); Red Cell Distribution Width 16.5 % (13.2-15.2)
[2017-09-07 05:09] LABS: BUN/Creatinine Ratio 26; Blood Urea Nitrogen 13 mg/dL (7-17); Calcium 9.4 mg/dL (8.4-10.2); Hemolysis Index 2
[2017-09-07 05:20] LABS: INR 1.17 (0.87-1.13)
[2017-09-07] MEDS: DEMADEX PO SCH (06:02)
[2017-09-07] MEDS: NOVOLOG SUB-Q SCH ×4 (08:25→22:32)
[2017-09-07] MEDS: CARDIZEM PO SCH ×2 (10:53→22:30)
[2017-09-07] MEDS: LOPRESSOR PO SCH ×2 (10:54→22:29)
[2017-09-07] MEDS: LOVENOX SUB-Q SCH (10:55)
[2017-09-07] MEDS: celeXA PO SCH (10:56)
[2017-09-07] MEDS: LASIX PO SCH (10:56)
[2017-09-07] MEDS: NEURONTIN PO SCH (10:57)
[2017-09-07] MEDS: GLUCOPHAGE PO SCH ×2 (10:58→22:30)
[2017-09-07] MEDS: PEPCID PO SCH ×2 (10:58→22:29)
[2017-09-07] MEDS: VITAMIN D3 PO SCH (11:00)
[2017-09-07] MEDS: POTASSIUM CHLORIDE PO SCH (11:02)
--- NOTE | 2017-09-07 11:33 | Progress Note ---
Assessment and Plan Assessment and plan: Patient is a 81 years old female with HTN, [place], CAD S/P Stent placement, Atrial Fib, ALVAREZ, Obesity, GERD, Diabetes, Anxiety admitted to [facility] for elective Left TKR. Consult placed by Dr. Gudino for medical management. Hypertensive urgency Continue home antihypertensive medications Closely monitor blood pressure Coronary artery disease Continue statins Diabetes mellitus Resume metformin and long acting at HS Accu-Chek before meals and at bedtime Sliding scale insulin/NovoLog ADA carbohydrate consistent diet Chronic anemia H&H stable for patient at this point; no blood transfusions needed Closely monitor H&H Hypenatrmia mild Most likely due to poor oral intake Closely monitor electrolytes Hx Atrial fibrillation Resume Coumadin Closely monitor INR DVT prophylaxis Heparin Waiting on placement History Interval history: Patient was seen and examined. Follow-up on current diagnosis. Overnight uneventful. Patient denies any chest pain, shortness breath, nausea/vomiting or severe headaches. Imaging, nursing note, chart, labs and old chart reviewed. Discussed with patient. Hospitalist Physical - Physical exam Narrative exam: GEN: WDWN, NAD, AWAKE, ALERT, ORIENTATED x2 HEENT: NCAT, EOMI, PERRL, OP Clear NECK: supple, no adenopathy, no thyromegaly, no JVD CVS/HEART: RRR, NORMAL S1S2, NO JVD, pulses present bilaterally CHEST/LUNGS: CTA B, Symmetrical chest expansion, good air entry bilaterally GI/Abdomen: soft, NTND, good bowel sounds, no guarding or rebound /Bladder: no suprapubic tenderness, no CVA or paraspinal tenderness EXT/Skin: no c/c/e, no obvious rash MSK: LROM left knee Neuro: CN 2-12 grossly intact, no new focal deficits Psych: calm her nerves - Constitutional Vitals: Temp Pulse Resp BP Pulse Ox 98.5 F 67 18 141/68 98 09/07/17 07:45 09/07/17 10:53 09/07/17 07:45 09/07/17 10:54 09/07/17 07:46 General appearance: Present: obese Results - Labs CBC & Chem 7: 09/07/17 04:22 09/07/17 04:22 Labs: Laboratory Last Values WBC 7.6 K/mm3 (4.5-11.0) 09/07/17 04:22 RBC 2.78 M/mm3 (3.65-5.03) L 09/07/17 04:22 Hgb 7.8 gm/dl (10.1-14.3) L 09/07/17 04:22 Hct 23.7 % (30.3-42.9) L 09/07/17 04:22 MCV 85 fl (79-97) 09/07/17 04:22 MCH 28 pg (28-32) 09/07/17 04:22 MCHC 33 % (30-34) 09/07/17 04:22 RDW 16.5 % (13.2-15.2) H 09/07/17 04:22 Plt Count 147 K/mm3 (140-440) 09/07/17 04:22 Lymph % (Auto) 45.3 % (13.4-35.0) H 09/03/17 14:20 [place] % (Auto) Occasional Caregiver 09/06/17 03:11 Eos % (Auto) 2.7 % (0.0-4.3) 09/03/17 14:20 Baso % (Auto) 0.5 % (0.0-1.8) 09/03/17 14:20 Lymph # 2.4 K/mm3 (1.2-5.4) 09/03/17 14:20 [place] # 0.7 K/mm3 (0.0-0.8) 09/03/17 14:20 Eos # 0.1 K/mm3 (0.0-0.4) 09/03/17 14:20 Baso # 0.0 K/mm3 (0.0-0.1) 09/03/17 14:20 Add Manual Diff Complete 09/06/17 03:11 Total Counted 100 09/06/17 03:11 Seg Neutrophils % 37.7 % (40.0-70.0) L 09/03/17 14:20 Seg Neuts % (Manual) 63.0 % (40.0-70.0) 09/06/17 03:11 Band Neutrophils % 9.0 % 09/06/17 03:11 Lymphocytes % (Manual) 14.0 % (13.4-35.0) 09/06/17 03:11 Reactive Lymphs % (Man) 0 % 09/06/17 03:11 Monocytes % (Manual) 14.0 % (0.0-7.3) H 09/06/17 03:11 Eosinophils % (Manual) 0 % (0.0-4.3) 09/06/17 03:11 Basophils % (Manual) 0 % (0.0-1.8) 09/06/17 03:11 Metamyelocytes % 0 % 09/06/17 03:11 Myelocytes % 0 % 09/06/17 03:11 Promyelocytes % 0 % 09/06/17 03:11 Blast Cells % 0 % 09/06/17 03:11 Nucleated RBC % Not Reportable 09/06/17 03:11 Seg Neutrophils # 2.0 K/mm3 (1.8-7.7) 09/03/17 14:20 Seg Neutrophils # Man 6.3 K/mm3 (1.8-7.7) 09/06/17 03:11 Band Neutrophils # 0.9 K/mm3 09/06/17 03:11 Lymphocytes # (Manual) 1.4 K/mm3 (1.2-5.4) 09/06/17 03:11 Abs React Lymphs (Man) 0.0 K/mm3 09/06/17 03:11 Monocytes # (Manual) 1.4 K/mm3 (0.0-0.8) H 09/06/17 03:11 Eosinophils # (Manual) 0.0 K/mm3 (0.0-0.4) 09/06/17 03:11 Basophils # (Manual) 0.0 K/mm3 (0.0-0.1) 09/06/17 03:11 Metamyelocytes # 0.0 K/mm3 09/06/17 03:11 Myelocytes # 0.0 K/mm3 09/06/17 03:11 Promyelocytes # 0.0 K/mm3 09/06/17 03:11 Blast Cells # 0.0 K/mm3 09/06/17 03:11 WBC Morphology Not Reportable 09/06/17 03:11 Hypersegmented Neuts Not Reportable 09/06/17 03:11 Hyposegmented Neuts Not Reportable 09/06/17 03:11 Hypogranular Neuts Not Reportable 09/06/17 03:11 Smudge Cells Not Reportable 09/06/17 03:11 Toxic Granulation Not Reportable 09/06/17 03:11 Toxic Vacuolation Not Reportable 09/06/17 03:11 Dohle Bodies Not Reportable 09/06/17 03:11 Pelger-Huet Anomaly Not Reportable 09/06/17 03:11 Ulisses Rods Not Reportable 09/06/17 03:11 Platelet Estimate Appears normal 09/06/17 03:11 Clumped Platelets Not Reportable 09/06/17 03:11 Plt Clumps, EDTA Not Reportable 09/06/17 03:11 Large Platelets Not Reportable 09/06/17 03:11 Giant Platelets Not Reportable 09/06/17 03:11 Platelet Satelliting Not Reportable 09/06/17 03:11 Plt Morphology Comment Not Reportable 09/06/17 03:11 RBC Morphology Not Reportable 09/06/17 03:11 Dimorphic RBCs Not Reportable 09/06/17 03:11 Polychromasia Not Reportable 09/06/17 03:11 Hypochromasia 1+ 09/06/17 03:11 Poikilocytosis Not Reportable 09/06/17 03:11 Anisocytosis 1+ 09/06/17 03:11 Microcytosis Not Reportable 09/06/17 03:11 Macrocytosis Not Reportable 09/06/17 03:11 Spherocytes Not Reportable 09/06/17 03:11 Pappenheimer Bodies Not Reportable 09/06/17 03:11 Sickle Cells Not Reportable 09/06/17 03:11 Target Cells Not Reportable 09/06/17 03:11 Tear Drop Cells Not Reportable 09/06/17 03:11 Ovalocytes Not Reportable 09/06/17 03:11 Helmet Cells Not Reportable 09/06/17 03:11 [place] Bodies Not Reportable 09/06/17 03:11 [place] Rings Not Reportable 09/06/17 03:11 [place] Cells Not Reportable 09/06/17 03:11 Bite Cells Not Reportable 09/06/17 03:11 Crenated Cell Not Reportable 09/06/17 03:11 Elliptocytes Not Reportable 09/06/17 03:11 Acanthocytes (Spur) Not Reportable 09/06/17 03:11 Rouleaux Not Reportable 09/06/17 03:11 Hemoglobin C Crystals Not Reportable 09/06/17 03:11 Schistocytes Not Reportable 09/06/17 03:11 Malaria parasites Not Reportable 09/06/17 03:11 Miki Bodies Not Reportable 09/06/17 03:11 Hem Pathologist Commnt No 09/06/17 03:11 PT 15.5 Sec. (12.2-14.9) H 09/07/17 04:22 INR 1.17 (0.87-1.13) H 09/07/17 04:22 APTT 31.9 Sec. (24.2-36.6) 09/03/17 14:20 Sodium 141 mmol/L (137-145) 09/07/17 04:22 Potassium 4.1 mmol/L (3.6-5.0) 09/07/17 04:22 Chloride 107.0 mmol/L (98-107) 09/07/17 04:22 Carbon Dioxide 26 mmol/L (22-30) 09/07/17 04:22 Anion Gap 12 mmol/L 09/07/17 04:22 BUN 13 mg/dL (7-17) 09/07/17 04:22 Creatinine 0.5 mg/dL (0.7-1.2) L 09/07/17 04:22 Estimated GFR > 60 ml/min 09/07/17 04:22 BUN/Creatinine Ratio 26 % 09/07/17 04:22 Glucose 95 mg/dL (65-100) 09/07/17 04:22 POC Glucose 89 (70-105) 09/07/17 07:54 Calcium 9.4 mg/dL (8.4-10.2) 09/07/17 04:22 Total Bilirubin 0.40 mg/dL (0.1-1.2) 09/03/17 14:20 AST 43 units/L (5-40) H 09/03/17 14:20 ALT 22 units/L (7-56) 09/03/17 14:20 Alkaline Phosphatase 122 units/L (35-129) 09/03/17 14:20 Total Protein 7.3 g/dL (6.3-8.2) 09/03/17 14:20 Albumin 3.3 g/dL (3.9-5) L 09/03/17 14:20 Albumin/Globulin Ratio 0.8 % 09/03/17 14:20
--- NOTE | 2017-09-07 11:34 | Discharge Summary ---
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 Consult placed by Dr. Gudino for medical management. Hypertensive urgency Continue home antihypertensive medications Closely monitor blood pressure Coronary artery disease Continue statins Diabetes mellitus Resume metformin and long acting at HS Accu-Chek before meals and at bedtime Sliding scale insulin/NovoLog ADA carbohydrate consistent diet Chronic anemia H&H stable for patient at this point; no blood transfusions needed Closely monitor H&H Hypenatrmia mild Most likely due to poor oral intake Closely monitor electrolytes Hx Atrial fibrillation Resume Coumadin Closely monitor INR DVT prophylaxis Heparin Waiting on placement Disposition: [id number] Time spent for discharge: 35 minutes Core Measure Documentation - Palliative Care Palliative Care/ Comfort Measures: Not Applicable - Core Measures Any of the following diagnoses?: none - VTE Discharge Requirements Deep Vein Thrombosis/Pulmonary Embolism Present on Admission: No Has pt received <5 days of overlap therapy or INR<2.0: No Anticoagulant overlap therapy prescribed at discharge: No Contraindication No Overlap Therapy order at DC: Not Indicated Exam - Constitutional Vitals: Temp Pulse Resp BP Pulse Ox 98.5 F 67 18 141/68 98 09/07/17 07:45 09/07/17 10:53 09/07/17 07:45 09/07/17 10:54 09/07/17 07:46 Plan Follow up with: AYLA JARAMILLO MD [Primary Care Provider] - 7 Days Forms: Warfarin Discharge Instruction
[2017-09-07] MEDS ORDERED: COUMADIN PO SCH (17:00)
--- NOTE | 2017-09-07 17:42 | Progress Note ---
Assessment and Plan s/p left TKR , doing well awaiting transfer to rehab facility soon Subjective Date of service: 09/07/17 Interval history: no c/o's family at bedside Objective Vital signs: Vital Signs - 12hr 09/07/17 09/07/17 09/07/17 06:03 06:46 07:45 Temperature 98.3 F 98.5 F Pulse Rate 70 67 Respiratory 17 18 18 Rate Blood Pressure 114/51 141/68 O2 Sat by Pulse 97 98 Oximetry 09/07/17 09/07/17 09/07/17 07:46 10:53 10:54 Temperature Pulse Rate 63 67 Respiratory Rate Blood Pressure 141/68 141/68 O2 Sat by Pulse 98 Oximetry 09/07/17 11:30 Temperature 98.6 F Pulse Rate Respiratory 20 Rate Blood Pressure 132/86 O2 Sat by Pulse Oximetry Narrative Exam: left knee - post op dressing removed, incision clean and dry, minimal drainage noted, neg Hasmukh, moderate swelling - Labs CBC & BMP: 09/07/17 04:22 09/07/17 04:22 Labs: Abnormal lab results 09/06/17 09/06/17 09/07/17 Range/Units 17:50 22:25 04:22 RBC (3.65-5.03) M/mm3 Hgb (10.1-14.3) gm/dl Hct (30.3-42.9) % RDW (13.2-15.2) % PT 15.5 H (12.2-14.9) Sec. INR 1.17 H (0.87-1.13) Creatinine (0.7-1.2) mg/dL POC Glucose 267 H 133 H (70-105) 09/07/17 09/07/17 09/07/17 Range/Units 04:22 04:22 16:26 RBC 2.78 L (3.65-5.03) M/mm3 Hgb 7.8 L (10.1-14.3) gm/dl Hct 23.7 L (30.3-42.9) % RDW 16.5 H (13.2-15.2) % PT (12.2-14.9) Sec. INR (0.87-1.13) Creatinine 0.5 L (0.7-1.2) mg/dL POC Glucose 106 H (70-105)
[2017-09-07] MEDS: LEVEMIR SUB-Q SCH (22:31)
[2017-09-08] MEDS: NACL 0.9% 1000 ML 1,000 ML IV SCH (00:15)
[2017-09-08 05:54] LABS: INR 1.09 (0.87-1.13)
[2017-09-08] MEDS: DEMADEX PO SCH (06:44)
[2017-09-08] MEDS: NOVOLOG SUB-Q SCH ×2 (09:39→11:43)
--- NOTE | 2017-09-08 10:30 | Progress Note ---
Assessment and Plan Assessment and plan: Patient is a 81 years old female with HTN, SC, CAD S/P Stent placement, Atrial Fib, ALVAREZ, Obesity, GERD, Diabetes, Anxiety admitted to [facility] for elective Left TKR. Consult placed by Dr. Gudino for medical management. Hypertensive urgency Continue home antihypertensive medications Closely monitor blood pressure Coronary artery disease Continue statins Diabetes mellitus Resume metformin and long acting at HS Accu-Chek before meals and at bedtime Sliding scale insulin/NovoLog ADA carbohydrate consistent diet Chronic anemia H&H stable for patient at this point; no blood transfusions needed Closely monitor H&H Hypenatrmia mild Most likely due to poor oral intake Closely monitor electrolytes Hx Atrial fibrillation Resume Coumadin Closely monitor INR DVT prophylaxis Heparin Waiting on placement History Interval history: Patient was seen and examined. Follow-up on current diagnosis. Overnight uneventful. Patient denies any chest pain, shortness breath, nausea/vomiting or severe headaches. Imaging, nursing note, chart, labs and old chart reviewed. Discussed with patient. Hospitalist Physical - Physical exam Narrative exam: GEN: WDWN, NAD, AWAKE, ALERT, ORIENTATED x2 HEENT: NCAT, EOMI, PERRL, OP Clear NECK: supple, no adenopathy, no thyromegaly, no JVD CVS/HEART: RRR, NORMAL S1S2, NO JVD, pulses present bilaterally CHEST/LUNGS: CTA B, Symmetrical chest expansion, good air entry bilaterally GI/Abdomen: soft, NTND, good bowel sounds, no guarding or rebound /Bladder: no suprapubic tenderness, no CVA or paraspinal tenderness EXT/Skin: no c/c/e, no obvious rash MSK: LROM left knee, good peripheral pulses Neuro: CN 2-12 grossly intact, no new focal deficits Psych: calm her nerves - Constitutional Vitals: Temp Pulse Resp BP Pulse Ox 98.5 F 62 18 121/61 97 09/08/17 07:22 09/08/17 07:22 09/08/17 07:22 09/08/17 07:22 09/08/17 07:22 General appearance: Present: obese Results - Labs CBC & Chem 7: 09/07/17 04:22 09/07/17 04:22 Labs: Laboratory Last Values WBC 7.6 K/mm3 (4.5-11.0) 09/07/17 04:22 RBC 2.78 M/mm3 (3.65-5.03) L 09/07/17 04:22 Hgb 7.8 gm/dl (10.1-14.3) L 09/07/17 04:22 Hct 23.7 % (30.3-42.9) L 09/07/17 04:22 MCV 85 fl (79-97) 09/07/17 04:22 MCH 28 pg (28-32) 09/07/17 04:22 MCHC 33 % (30-34) 09/07/17 04:22 RDW 16.5 % (13.2-15.2) H 09/07/17 04:22 Plt Count 147 K/mm3 (140-440) 09/07/17 04:22 Lymph % (Auto) 45.3 % (13.4-35.0) H 09/03/17 14:20 Moca % (Auto) [place] 09/06/17 03:11 Eos % (Auto) 2.7 % (0.0-4.3) 09/03/17 14:20 Baso % (Auto) 0.5 % (0.0-1.8) 09/03/17 14:20 Lymph # 2.4 K/mm3 (1.2-5.4) 09/03/17 14:20 Moca # 0.7 K/mm3 (0.0-0.8) 09/03/17 14:20 Eos # 0.1 K/mm3 (0.0-0.4) 09/03/17 14:20 Baso # 0.0 K/mm3 (0.0-0.1) 09/03/17 14:20 Add Manual Diff Complete 09/06/17 03:11 Total Counted 100 09/06/17 03:11 Seg Neutrophils % 37.7 % (40.0-70.0) L 09/03/17 14:20 Seg Neuts % (Manual) 63.0 % (40.0-70.0) 09/06/17 03:11 Band Neutrophils % 9.0 % 09/06/17 03:11 Lymphocytes % (Manual) 14.0 % (13.4-35.0) 09/06/17 03:11 Reactive Lymphs % (Man) 0 % 09/06/17 03:11 Monocytes % (Manual) 14.0 % (0.0-7.3) H 09/06/17 03:11 Eosinophils % (Manual) 0 % (0.0-4.3) 09/06/17 03:11 Basophils % (Manual) 0 % (0.0-1.8) 09/06/17 03:11 Metamyelocytes % 0 % 09/06/17 03:11 Myelocytes % 0 % 09/06/17 03:11 Promyelocytes % 0 % 09/06/17 03:11 Blast Cells % 0 % 09/06/17 03:11 Nucleated RBC % Not Reportable 09/06/17 03:11 Seg Neutrophils # 2.0 K/mm3 (1.8-7.7) 09/03/17 14:20 Seg Neutrophils # Man 6.3 K/mm3 (1.8-7.7) 09/06/17 03:11 Band Neutrophils # 0.9 K/mm3 09/06/17 03:11 Lymphocytes # (Manual) 1.4 K/mm3 (1.2-5.4) 09/06/17 03:11 Abs React Lymphs (Man) 0.0 K/mm3 09/06/17 03:11 Monocytes # (Manual) 1.4 K/mm3 (0.0-0.8) H 09/06/17 03:11 Eosinophils # (Manual) 0.0 K/mm3 (0.0-0.4) 09/06/17 03:11 Basophils # (Manual) 0.0 K/mm3 (0.0-0.1) 09/06/17 03:11 Metamyelocytes # 0.0 K/mm3 09/06/17 03:11 Myelocytes # 0.0 K/mm3 09/06/17 03:11 Promyelocytes # 0.0 K/mm3 09/06/17 03:11 Blast Cells # 0.0 K/mm3 09/06/17 03:11 WBC Morphology Not Reportable 09/06/17 03:11 Hypersegmented Neuts Not Reportable 09/06/17 03:11 Hyposegmented Neuts Not Reportable 09/06/17 03:11 Hypogranular Neuts Not Reportable 09/06/17 03:11 Smudge Cells Not Reportable 09/06/17 03:11 Toxic Granulation Not Reportable 09/06/17 03:11 Toxic Vacuolation Not Reportable 09/06/17 03:11 Dohle Bodies Not Reportable 09/06/17 03:11 Pelger-Huet Anomaly Not Reportable 09/06/17 03:11 Ulisses Rods Not Reportable 09/06/17 03:11 Platelet Estimate Appears normal 09/06/17 03:11 Clumped Platelets Not Reportable 09/06/17 03:11 Plt Clumps, EDTA Not Reportable 09/06/17 03:11 Large Platelets Not Reportable 09/06/17 03:11 Giant Platelets Not Reportable 09/06/17 03:11 Platelet Satelliting Not Reportable 09/06/17 03:11 Plt Morphology Comment Not Reportable 09/06/17 03:11 RBC Morphology Not Reportable 09/06/17 03:11 Dimorphic RBCs Not Reportable 09/06/17 03:11 Polychromasia Not Reportable 09/06/17 03:11 Hypochromasia 1+ 09/06/17 03:11 Poikilocytosis Not Reportable 09/06/17 03:11 Anisocytosis 1+ 09/06/17 03:11 Microcytosis Not Reportable 09/06/17 03:11 Macrocytosis Not Reportable 09/06/17 03:11 Spherocytes Not Reportable 09/06/17 03:11 Pappenheimer Bodies Not Reportable 09/06/17 03:11 Sickle Cells Not Reportable 09/06/17 03:11 Target Cells Not Reportable 09/06/17 03:11 Tear Drop Cells Not Reportable 09/06/17 03:11 Ovalocytes Not Reportable 09/06/17 03:11 Helmet Cells Not Reportable 09/06/17 03:11 K[place] Bodies Not Reportable 09/06/17 03:11 [place] Rings Not Reportable 09/06/17 03:11 [place] Cells Not Reportable 09/06/17 03:11 Bite Cells Not Reportable 09/06/17 03:11 Crenated Cell Not Reportable 09/06/17 03:11 Elliptocytes Not Reportable 09/06/17 03:11 Acanthocytes (Spur) Not Reportable 09/06/17 03:11 Rouleaux Not Reportable 09/06/17 03:11 Hemoglobin C Crystals Not Reportable 09/06/17 03:11 Schistocytes Not Reportable 09/06/17 03:11 Malaria parasites Not Reportable 09/06/17 03:11 Miki Bodies Not Reportable 09/06/17 03:11 Hem Pathologist Commnt No 09/06/17 03:11 PT 14.7 Sec. (12.2-14.9) 09/08/17 05:15 INR 1.09 (0.87-1.13) 09/08/17 05:15 APTT 31.9 Sec. (24.2-36.6) 09/03/17 14:20 Sodium 141 mmol/L (137-145) 09/07/17 04:22 Potassium 4.1 mmol/L (3.6-5.0) 09/07/17 04:22 Chloride 107.0 mmol/L (98-107) 09/07/17 04:22 Carbon Dioxide 26 mmol/L (22-30) 09/07/17 04:22 Anion Gap 12 mmol/L 09/07/17 04:22 BUN 13 mg/dL (7-17) 09/07/17 04:22 Creatinine 0.5 mg/dL (0.7-1.2) L 09/07/17 04:22 Estimated GFR > 60 ml/min 09/07/17 04:22 BUN/Creatinine Ratio 26 % 09/07/17 04:22 Glucose 95 mg/dL (65-100) 09/07/17 04:22 POC Glucose 103 (70-105) 09/08/17 08:31 Calcium 9.4 mg/dL (8.4-10.2) 09/07/17 04:22 Total Bilirubin 0.40 mg/dL (0.1-1.2) 09/03/17 14:20 AST 43 units/L (5-40) H 09/03/17 14:20 ALT 22 units/L (7-56) 09/03/17 14:20 Alkaline Phosphatase 122 units/L (35-129) 09/03/17 14:20 Total Protein 7.3 g/dL (6.3-8.2) 09/03/17 14:20 Albumin 3.3 g/dL (3.9-5) L 09/03/17 14:20 Albumin/Globulin Ratio 0.8 % 09/03/17 14:20
[2017-09-08] MEDS: GLUCOPHAGE PO SCH (11:42)
[2017-09-08] MEDS: VITAMIN D3 PO SCH (11:53)
[2017-09-08] MEDS: NEURONTIN PO SCH (11:56)
[2017-09-08] MEDS: LOPRESSOR PO SCH (11:57)
[2017-09-08] MEDS: PEPCID PO SCH (11:58)
[2017-09-08] MEDS: LASIX PO SCH (11:59)
[2017-09-08] MEDS: celeXA PO SCH (11:59)
[2017-09-08] MEDS: CARDIZEM PO SCH (12:00)
[2017-09-08] MEDS: LOVENOX SUB-Q SCH (12:03)
[2017-09-08] MEDS: POTASSIUM CHLORIDE PO SCH (12:06)
[2017-09-08 13:29] VITALS: BP 139/51
== END 2017-09-08 14:50 | DRG 470 ==
LOC: 3A 06:30 → 3B-SURG 15:26
PROVIDERS: ADMIT Orthopaedic Surgery; ATTEND Orthopaedic Surgery
PROC: 0SRD0J9 Replacement of Left Knee Joint with Synthetic Substitute, Cemented, Open Approach (ICD-10-PCS; principal; 2017-09-04)
DX: M17.12 Unilateral primary osteoarthritis, left knee (principal); E87.0 Hyperosmolality and hypernatremia; I25.10 Atherosclerotic heart disease of native coronary artery without angina pectoris; E11.9 Type 2 diabetes mellitus without complications; I16.0 Hypertensive urgency; D64.9 Anemia, unspecified; I50.9 Heart failure, unspecified; E66.9 Obesity, unspecified; K21.9 Gastro-esophageal reflux disease without esophagitis; F41.9 Anxiety disorder, unspecified; I48.91 Unspecified atrial fibrillation; Z83.3 Family history of diabetes mellitus; Z90.89 Acquired absence of other organs; Z87.442 Personal history of urinary calculi; Z95.5 Presence of coronary angioplasty implant and graft; Z80.42 Family history of malignant neoplasm of prostate; Z68.36 Body mass index [BMI] 36.0-36.9, adult; Z82.49 Family history of ischemic heart disease and other diseases of the circulatory system; Z79.01 Long term (current) use of anticoagulants; Z79.4 Long term (current) use of insulin; Z79.899 Other long term (current) drug therapy
CPT/HCPCS: 36415; 64450; 80048; 80053; 82962; 85007; 85014; 85018; 85025; 85027; 85610; 85730; 88304; 88305; 88311; 93306; 94760; A9270-GY; C1776; G8978-GP; G8979-GP; J0690; J0735; J1030; J1100; J1170; J1650; J1818; J1885; J2250; J2270; J2405; J2704; J3010; J7030

== ENCOUNTER 2017-11-14 11:47 | Outpatient (CLI) | payer MEDICARE ==
--- NOTE | 2017-11-14 14:51 | XRay Report ---
Left knee: Pain. There is a total knee replacement which appears well applied to the respective femoral and tibial surfaces. There is good alignment. No interface lucencies are identified. There is marked bony proliferation posteriorly just above the femoral portion of the prosthesis as well as bony proliferation posterior and medial to the tibial prosthesis. There are a few small calcifications noted posteriorly which may represent residual loose bodies most of which were apparently removed at surgery. There is superficial edema of the tissues as well as a large joint effusion. Impression: 1. Total knee replacement. 2. Large nonspecific joint effusion and soft tissue swelling. 3. Questionable residual loose bodies posteriorly.
== END 2017-11-14 11:48 | disposition home or self-care (01) ==
LOC: XRAY 11:47
PROVIDERS: ATTEND Orthopaedic Surgery
DX: M25.862 Other specified joint disorders, left knee (principal); M25.462 Effusion, left knee; M25.562 Pain in left knee; Z96.652 Presence of left artificial knee joint

== ENCOUNTER 2018-01-30 12:18 | Outpatient (CLI) | payer MEDICARE ==
--- NOTE | 2018-01-30 12:56 | XRay Report ---
Single view chest: Compared to 07/21/17. History: Heart failure. Findings: Cardiomegaly. Trachea is midline, pneumothorax or pleural effusion. Impression: No acute cardiopulmonary findings.
== END 2018-01-30 12:19 | disposition home or self-care (01) ==
LOC: XRAY 12:18
PROVIDERS: ATTEND Nurse Practitioner
DX: I11.0 Hypertensive heart disease with heart failure (principal); I50.9 Heart failure, unspecified; I25.10 Atherosclerotic heart disease of native coronary artery without angina pectoris; E11.9 Type 2 diabetes mellitus without complications; I48.91 Unspecified atrial fibrillation; K21.9 Gastro-esophageal reflux disease without esophagitis; F32.9 Major depressive disorder, single episode, unspecified; F41.9 Anxiety disorder, unspecified; G47.30 Sleep apnea, unspecified; Z95.5 Presence of coronary angioplasty implant and graft; Z90.49 Acquired absence of other specified parts of digestive tract
CPT/HCPCS: 71046